=== PATIENT | male | born 1990 | race Caucasian/White ===

== ENCOUNTER 2017-11-26 08:19 | Emergency (ER) | payer OTHER ==
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
== END 2017-11-26 10:17 | disposition home or self-care (01) ==
LOC: ER 08:19
DX: S70.01XA Contusion of right hip, initial encounter (principal); S60.211A Contusion of right wrist, initial encounter; V09.9XXA Pedestrian injured in unspecified transport accident, initial encounter
CPT/HCPCS: 99283

== ENCOUNTER 2021-05-01 09:32 | Observation (INO) | payer OTHER ==
[2021-05-01] MEDS ORDERED: HYDROMORPHONE HCL 1 MG/ML INJ IV PRN ×2 (10:14→14:52)
[2021-05-01 10:32] VITALS: BMI 25.0
[2021-05-01 10:41] LABS: Absolute Lymphocytes (CBC) 1.1 K/uL (0.7-4.9); Hematocrit 45.6 % (39.6-49.0); Lymphocytes % 7.6 % (15.3-44.8); MPV 10.2 fL (7.6-11.3); RBC Red Blood Cell Count 5.18 M/uL (4.33-5.43)
[2021-05-01] MEDS ORDERED: NA CHLORIDE 0.9% 50 ML ONE (10:42)
[2021-05-01] MEDS ORDERED: CEFOXITIN SODIUM 1 GM/VIAL ONE (10:42)
[2021-05-01] MEDS ORDERED: NACHLORIDE 0.45% 1,000 ML IV ONE (10:42)
[2021-05-01] MEDS ORDERED: CEFOXITIN 1 GM in NA CHLORIDE 0.9% 50 ML IVPB SCH (11:00)
[2021-05-01] MEDS ORDERED: NACHLORIDE 0.45% 1,000 ML IV SCH (11:00)
[2021-05-01 11:02] LABS: Protime INR 1.08
[2021-05-01 11:23] LABS: Magnesium 2.1 mg/dL (1.8-2.4); Potassium 4.4 mmol/L (3.5-5.1); Thyroid Stimulating Hormone 0.967 uIU/mL (0.360-3.740)
[2021-05-01 12:07] LABS: Urine Appearance Clear (Clear); Urine Bilirubin Negative (Negative); Urine Blood Negative (Negative); Urine Color Yellow (Yellow); Urine Glucose Negative (Negative); Urine Microscopic Reflex ORDER UMIC; Urine Protein Negative (Negative); Urine Urobilinogen 0.2 mg/dL (0.2-1.0)
[2021-05-01 12:15] LABS: Urine Bacteria NONE SEEN /HPF (NONE SEEN); Urine RBC NONE SEEN /HPF (NONE SEEN)
--- NOTE | 2021-05-01 12:56 | RAD REPORT ---
EXAM DESCRIPTION: CT - Abdomen Pelvis W Contrast - 05/01/2021 12:36 pm CLINICAL HISTORY: Abdominal pain. Right lower quadrant pain COMPARISON: None. TECHNIQUE: Computed axial tomography of the abdomen and pelvis was obtained. 100 cc Isovue-300 is ad ministered intravenously. Oral contrast was given. All CT scans are performed using dose optimization technique as appropriate and may include automated exposure control or mA/KV adjustment according to patient size. FINDINGS: The liver, spleen, pancreas, adrenals and kidneys appear unremarkable. There is no evidence of diverticulitis The appendix is dilated. There is moderate to marked stranding adjacent to the appendix with small am ount of ill-defined fluid. No free air. No abscess seen. IMPRESSION: Suppurative appendicitis
[2021-05-01] MEDS ORDERED: Ringers Lactate 1,000 ML IV ONE (13:32)
--- NOTE | 2021-05-01 13:34 | P.CNS ---
Date of Consult: 05/01/21 Chief complaint: Abdominal pain History of present Illness: Patient is a 31-year-old gentleman who presents to the emergency room from Dr. Leo's office with 1 day history of right lower quadrant abdominal pain. Patient states that he has had nausea for 1 day. Patient denies vomiting, diarrhea or constipation. Patient denies dysuria or hematuria. Patient denies sore throat, cough, headaches, runny nose, fever, chills or chest pain. Review of systems: Otherwise unremarkable. Past medical history: Negative Past surgical history: Negative Allergies: None Social history: Denies alcohol or tobacco use Family history: Noncontributory Vital signs: Vital signs stable, afebrile Physical exam: Awake alert oriented x3 Head and neckcranial nerves II through XII grossly within normal limits, no neck masses, no JVD, throat clear and neck supple Chestclear HeartS1-S2 Abdomensoft, nondistended, positive bowel sounds with right lower quadrant tenderness and rebound. Rovsing's sign present. Extremitywell-perfused and nontender Neurononfocal Diagnostic data: White blood cell count elevated to 14,000. CT of the abdomen and pelvis consistent with acute appendicitis Assessment: Acute appendicitis Plan/recommendation: Admit, n.p.o., IV fluids, IV antibiotics and to the OR for laparoscopic appendectomy possible open. Patient understands risk benefits and alternatives and agrees to procedure.
[2021-05-01] MEDS ORDERED: dexAMETHasone 10 MG/ML VIAL ONE (13:40)
[2021-05-01] MEDS ORDERED: propofoL 200 MG/20 ML VIAL IV ONE (13:40)
[2021-05-01] MEDS ORDERED: ROCURONIUM 50 MG/5 ML VIAL IV ONE (13:40)
[2021-05-01] MEDS ORDERED: FENTANYL CITR 100 MCG/2 ML ONE (13:40)
[2021-05-01] MEDS ORDERED: LIDOCAINE 2% MPF 5 ML VIAL ONE (13:40)
[2021-05-01] MEDS ORDERED: ONDANSETRON 4 MG/2 ML VIAL ONE (13:41)
[2021-05-01] MEDS ORDERED: MIDAZOLAM HCL 2 MG/2 ML INJ ONE (13:41)
[2021-05-01] MEDS ORDERED: BUPIVACA 0.5%/EPI 0.0005%/PF 30 ML VIAL SQ ONE ×2 (13:55)
[2021-05-01] MEDS ORDERED: GLYCOPYRROLATE 0.2 MG/ML SYR ONE (14:42)
[2021-05-01] MEDS ORDERED: KETOROLAC 30 MG/ML INJ ONE (14:42)
[2021-05-01] MEDS ORDERED: Mastisol Adhesive Liq ONE (14:45)
[2021-05-01] MEDS ORDERED: NEOSTIGMINE 1 MG/ML -5 ML ONE (14:45)
--- NOTE | 2021-05-01 14:50 | P.OP ---
Qc Manager: Terri HARTMAN Preoperative diagnosis: Acute appendicitis Postoperative diagnosis: Acute suppurative appendicitis Primary procedure: Laparoscopic appendectomy Anesthesia: General Estimated blood loss: Minimal Specimen: Appendix Findings: As above Operative Technique: Patient brought to the OR and placed in the supine position. General anesthesia begun and patient prepped draped in usual sterile fashion. 0.5% Marcaine locally infiltrated. 1 cm supraumbilical midline incision made and subcutaneous tissue divided. Fascia identified and divided and #1 Vicryl stay suture placed. Peritoneal cavity entered with sharp and blunt dissection. 12 mm trocar placed into the peritoneal cavity under direct vision. Pneumoperitoneum established a nd 2 5 mm trochars placed into the peritoneal cavity. 1 placed in the suprapubic region and the other in the left lower quadrant. Laparoscopy revealed normal anatomy except for acute suppurative appendicitis in the right lower quadrant. There was suppuration present. Base of the appendix and mesoappendix clearly identified. Endo LONNY stapling device used to divide the mesoappendix and the base of the appendix. The appendix removed through the the umbilicus via Endo Catch bag. Right lower quadrant irrigated and effluent clear no evidence of bleeding or bowel injury appreciated. No other evidence of disease appreciated. All trochars removed under direct vision. Stay sutures tied to each other reapproximate the fascial defect. Subcutaneous wounds irrigated bleeding controlled with cautery. 3-0 chromic used to reapproximate subcutaneous tissue and closed skin. Sterile dressing applied and patient awakened and taken to recovery in good general condition. Complications: None Transferred to: Recovery Room Condition: Good
[2021-05-01] MEDS ORDERED: ONDANSETRON 4 MG/2 ML VIAL IV PRN (14:52)
[2021-05-01] MEDS ORDERED: HYDROCODONE/APAP 7.5/325 MG TAB PO PRN (14:52)
[2021-05-01] MEDS: Ringers Lactate 1,000 ML IV SCH (15:00)
[2021-05-01] MEDS ORDERED: METRONIDAZOLE 500mg IVPB 500 MG/100 ML BAG IV SCH (15:00)
--- NOTE | 2021-05-01 17:27 | ER ---
Nurse's Notes [facility] Name: Tai Shukla Age: 31 yrs Sex: Male : 1990 Arrival Date: 05/01/2021 Time: 09:33 Bed Direct Admit Private MD: Diagnosis: Unspecified acute appendicitis Presentation: 05/01 09:40 Chief complaint: Patient states: pt presented to ED reporting nausea RLQ pain x1 day. hui PCP referred to ED to R/O Appendicitis. Coronavirus screen: Vaccine status: Patient reports receiving the 2nd dose of the covid vaccine. Ebola Screen: Patient denies travel to an Ebola-affected area in the 21 days before illness onset. Initial Sepsis Screen: Does the patient meet any 2 criteria? No. Patient's initial sepsis screen is negative. Does the patient have a suspected source of infection? No. Patient's initial sepsis screen is negative. Risk Assessment: Do you want to hurt yourself or someone else? Patient reports no desire to harm self or others. Onset of symptoms was April 30, 2021. 09:40 Method Of Arrival: Ambulatory hui 09:40 Acuity: KRISTOPHER 3 hui Triage Assessment: 09:42 General: Appears in no apparent distress. Behavior is calm, cooperative. Pain: hui Complains of pain in right upper quadrant and right lower quadrant. Historical: - Home Meds: 09:42 None [Active]; hui - PMHx: 09:42 None; hui - PSHx: 09:42 None; hui - Immunization history:: Adult Immunizations up to date. - Social history:: Smoking status: Patient denies any tobacco usage or history of. Screenin:56 Abuse screen: Denies threats or abuse. Denies injuries from another. Nutritional ab2 screening: No deficits noted. Tuberculosis screening: No symptoms or risk factors identified. Fall Risk None identified. Assessment: 09:50 General: Appears in no apparent distress. comfortable, Behavior is calm, cooperative, ab2 appropriate for age. Pain: Complains of pain in right upper quadrant and right lower quadrant Pain currently is 5 out of 10 on a pain scale. Quality of pain is described as sharp. Neuro: Level of Consciousness is awake, alert, obeys commands, Oriented to person, place, time, situation, Appropriate for age Threading Machine Operator are equal bilaterally Moves all extremities. Gait is steady, Speech is normal, Facial symmetry appears normal. Cardiovascular: No deficits noted. Denies chest pain, shortness of breath, Heart tones S1 S2 present Patient's skin is warm and dry. Respiratory: No deficits noted. Airway is patent Respiratory effort is even, unlabored, Respiratory pattern is regular, symmetrical, Breath sounds are clear bilaterally. GI: Abdomen is round non-distended, Bowel sounds present X 4 quads. Reports lower abdominal pain, upper abdominal pain, nausea. : No deficits noted. No signs and/or symptoms were reported regarding the genitourinary system. EENT: No deficits noted. No signs and/or symptoms were reported regarding the EENT system. Derm: Skin is intact, is healthy with good turgor, Skin is pink, warm \T\ dry. Musculoskeletal: No deficits noted. No signs and/or symptoms reported regarding the musculoskeletal system. Vital Signs: 09:40 BP 127 / 94; Pulse 79; Resp 18; Temp 98.8(O); Pulse Ox 99% ; Weight 90.72 kg; Height 6 hui ft. 2 in. (187.96 cm); 09:56 BP 123 / 88; Pulse 80; Resp 17; Pulse Ox 98% on R/A; ab2 09:40 Body Mass Index 25.68 (90.72 kg, 187.96 cm) hui ED Course: 09:33 Patient arrived in ED. kz 09:42 Triage completed. hui 09:42 Arm band placed on. hui 09:50 Paco Sandy is Primary Nurse. ab2 09:56 No provider procedures requiring assistance completed. Inserted saline lock: 20 gauge ab2 in right antecubital area, using aseptic technique. Blood collected. 09:57 Patient has correct armband on for positive identification. Bed in low position. Call ab2 light in reach. Side rails up X2. 17:25 Patient admitted, IV remains in place. ab2 17:26 Osvaldo Leo MD is Hospitalizing Provider. ab2 17:28 Osvaldo Leo MD is Attending Physician. bd Administered Medications: No medications were administered Outcome: 17:25 Admitted to Med/surg accompanied by tech, via wheelchair, room 228, Report called to ab2 LIZET Fulton 17:27 Decision to Hospitalize by Provider. ab2 17:28 Patient left the ED. bd Signatures: DirCally godinez Heather, LIZET RN korina Sandy, Paco ab2 Sara Stein kz
[2021-05-01] MEDS: PIPER TAZO 3.375 GM in NA CHLORIDE 0.9% 100 ML IV SCH (18:08)
[2021-05-01 21:17] VITALS: O2SAT 98
[2021-05-02] MEDS: PIPER TAZO 3.375 GM in NA CHLORIDE 0.9% 100 ML IV SCH ×2 (01:37→07:51)
[2021-05-02] MEDS: Ringers Lactate 1,000 ML IV SCH ×3 (01:37→07:51)
[2021-05-02 04:27] LABS: Absolute Lymphocytes (CBC) 0.5 K/uL (0.7-4.9); Hematocrit 40.8 % (39.6-49.0); Lymphocytes % 4.9 % (15.3-44.8); MPV 9.7 fL (7.6-11.3); RBC Red Blood Cell Count 4.69 M/uL (4.33-5.43)
[2021-05-02 05:02] LABS: Blood Morphology Comment NOT SEEN (NOT SEEN); Platelet Estimate ADEQ
--- NOTE | 2021-05-02 07:56 | P.PN ---
Date of Service: 05/02/21 Subjective: Patient with no complaints. Tolerating diet. Ambulating. Objective: Vital signs are stable and he is afebrile. White count has come down to 11,000. Abdomen is soft nondistended nontender positive bowel sounds. Dressing is clean dry and intact. Assessment: Status post laparoscopic appendectomy Plan: Patient cleared for discharge. Augmentin and Tylenol 3 called into his pharmacy. Discharge instructions given in detail. Follow-up my office 1 week call for appointment. CC: Dr. Leo'S office
[2021-05-02 08:17] VITALS: BP 119/70; TEMP 97.5
== END 2021-05-02 10:00 | disposition home or self-care (01) ==
LOC: ER 09:32 → EDSTATUS 09:32 → ERHOLD 09:55 → 2ND 17:18
PROVIDERS: ADMIT Internal Medicine; ATTEND Internal Medicine
PROC: 0DTJ4ZZ Resection of Appendix, Percutaneous Endoscopic Approach (ICD-10-PCS; principal; 2021-05-01 13:00)
DX: K35.80 Unspecified acute appendicitis (principal); Z20.822 Contact with and (suspected) exposure to COVID-19
CPT/HCPCS: 87088; 85025 ×2; 87086; 80048; 36415 ×2; 83735; 84100; 85610; 88304; 85730; 84443; 82607; 82306; 74177; 94010; 99281; 44970; U0003; Q9967; J2704; J2543 ×3; J2250; J3010; J1100; J1170; J2710; J7120 ×2; J0694; J2405; G0379; G0378 ×2; 81003; 81015